=== PATIENT | male | born 1990 | race Asian ===

== ENCOUNTER 2017-10-07 11:48 | Emergency (ER) | payer OTHER ==
[~2017-10-07] VITALS: Ht 170.2 cm; Wt 65.9 kg
[2017-10-07 12:06] VITALS: BP 135/76
[2017-10-07] MEDS ORDERED: DOXY100C37 PO (13:22)
[2017-10-07] MEDS ORDERED: ANUS25SU PR (13:22)
== END 2017-10-07 13:36 | disposition home or self-care (01) ==
LOC: M ED 11:48
DX: L73.9 Follicular disorder, unspecified (principal)

== ENCOUNTER 2017-10-09 15:36 | Emergency (ER) | payer OTHER ==
[~2017-10-09] VITALS: Ht 170.2 cm; Wt 65.9 kg
[~2017-10-09 15:36] MED LIST: ANUS25SU PR; DOXY100C37 PO
[2017-10-09 15:37] VITALS: BP 136/74
== END 2017-10-09 17:02 | disposition home or self-care (01) ==
LOC: M ED 15:36
DX: L73.9 Follicular disorder, unspecified (principal); Z79.899 Other long term (current) drug therapy

== ENCOUNTER 2018-04-01 19:12 | Emergency (ER) | payer OTHER | END 2018-04-01 21:03 | disposition left against medical advice (07) | LOC: M ED 19:12 | DX: R07.9 Chest pain, unspecified (principal) | CPT/HCPCS: 93005 ==